=== PATIENT | male | born 2000 | race Caucasian/White ===

== ENCOUNTER 2022-01-30 13:53 | Emergency (ER) | payer SELFPAY ==
[2022-01-30] MEDS ORDERED: Sodium Chloride 0.9% 1,000 ML IV ONE (14:05)
[2022-01-30] MEDS ORDERED: Sodium Chloride 0.9% 10 ML Syringe FLUSH PRN (14:05)
[2022-01-30] MEDS ORDERED: Sodium Chloride 0.9% 2.5 ML Syringe FLUSH PRN (14:05)
[2022-01-30] MEDS ORDERED: Ketorolac 30 MG/ML SDV IVPUSH ONE (14:06)
[2022-01-30 15:27] LABS: BLOOD UREA NITROGEN,BUN 23 mg/dL (7.0-18.0); CARBON DIOXIDE,CO2 21.1 mmol/L (21.0-32.0); CHLORIDE,CL 108 mmol/L (98-107); ESTIMATED GFR 72 mL/min (>60); GLUCOSE RANDOM 72 mg/dL (74-106); POTASSIUM,K 3.7 mmol/L (3.5-5.1); SODIUM,NA 143 mmol/L (136-148)
== END 2022-01-30 16:37 | disposition home or self-care (01) ==
LOC: EDBD 13:53 → MW.ED 13:53
DX: F15.90 Other stimulant use, unspecified, uncomplicated (principal); R25.2 Cramp and spasm; Z02.89 Encounter for other administrative examinations
CPT/HCPCS: 36415; 70450; 72125; 80053; 80307; 85025; 96361; 96374; 99284; J1885; J3490; J7030